=== PATIENT | male | born 1980 ===

== ENCOUNTER 2023-11-02 16:01 | Outpatient (AMB) | payer OTHER, SELFPAY ==
--- NOTE | 2023-11-02 15:59 | MHC.PC.OV ---
Vital Signs 11/02/23 16:03 Weight 201 lb BP 120/74 Blood Pressure Location Rt brachial Position Sitting Pulse 91 Pulse Source Pulse Oximeter Pulse Oximetry (%) 98 Oxygen Delivery Method Room Air Intake Visit Reasons: NPV/ requesting phy Intake Note: Patient here to establish care. Allergies No Known Allergies Allergy (Verified 11/02/23 16:55) Medication List - Last Reconciled 11/02/23 by ALLISON Curry No Known Home Meds Tobacco use date assessed: 11/02/23 Dental Screening Dental Screen Date: 11/02/23 Did you have a dental visit in the last 12 months?: Yes Did you have a dental problem in the last 6 months where you did not have access to dental care?: No Was dental information given to patient?: Patient has dentist HPI NPV/ requesting phy HPI Details New pt is here for a PE. Will order labs. 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 Due for colon screen, will refer to GI. Pt has a strong family hx of prostate cancer (father+uncle). Will order PSA. Denies dribbling with urination, weak stream, and frequent nocturia. Pt is requesting an A1C due to strong family hx of diabetes. [facility] Surgical History History of ear, nose, and throat (ENT) surgery Social History Housing: House Patient Tobacco Use Status: Never used Tobacco e-Cigarette/Vaping Use: Never Used service: No Current occupational status: employed Current occupation: [employer] Cognitive needs: No Hearing needs: No Vision needs: No Questionnaire PHQ-9 Over the last 2 weeks, how often have you been bothered by any of the following problems? 1. Little interest or pleasure in doing things: not at all 2. Feeling down, depressed, or hopeless: not at all 3. Trouble falling or staying asleep, or sleeping too much: not at all 4. Feeling tired or having little energy: not at all 5. Poor appetite or overeating: not at all 6. Feeling bad about yourself - or that you are a failure or have let yourself or your family down: not at all 7. Trouble concentrating on things, such as reading the newspaper or watching television: not at all 8. Moving or speaking so slowly that other people could have noticed. Or the opposite - being so fidgety or restless that you have been moving around a lot more than usual: not at all 9. Thoughts that you would be better off or of hurting yourself in some way: not at all Total score: 0 Depression Screening Interpretation: Negative Depression Screening Done: Yes 54382 - PHQ-9 Billing: Yes Source: Developed by Drs. Ángel Denise, Tammi Ayala, Santos Mcpherson and colleagues, with an educational tiffany from [employer]. Thrive Questionnaire Date Thrive assessed: 11/02/23 I am a: Patient What is your living situation today?: I have a steady place to live Within the past 12 months, did the food you bought not last and you didn't have the money to get more?: Never true Within the past 12 months, did you worry whether your food would run out before you got money to buy more?: Never true Do you have trouble paying for medicines?: No Do you have trouble getting transportation to medical appointments?: No Do you have trouble paying your heating and electricity bill?: No Do you have trouble taking care of your child, family member or friend?: No Do you have trouble with day-to-day activities such as bathing, preparing meals, shopping, managing finances, etc.?: No Are you currently unemployed and looking for a job?: No Are you interested in more education?: No Please select the resources that you would like help with: None Currently or been in a relationship where the following occur: I choose not to answer this question THRIVE Score: 0 AUDIT C Alcohol Use Questionnaire (AUDIT-C) 1. How often do you have a drink containing alcohol?: Never 3. How often do you have six or more drinks on one occasion?: Never Total Score: 0 Score Reviewed/Action Taken: No SALVADOR-7 AMB Questionnaire SALVADOR-7 Date SALVADOR - 7 assessed: 11/02/23 Feeling nervous, anxious, or on edge: 0 = Not at all Not being able to stop or control worryin = Not at all Worrying too much about different things: 0 = Not at all Trouble relaxin = Not at all Being so restless that it is hard to sit still: 0 = Not at all Becoming easily annoyed or irritable: 0 = Not at all Feeling afraid as if something awful might happen: 0 = Not at all Total SALVADOR-7 score (0-4 normal; 5-9 mild; 10-14 moderate; 15-21 severe): 0 Source: Developed by Drs. Ángel Denise, Tammi Ayala, Santos Mcpherson and colleagues, with an educational tiffany from [employer]. SALVADOR-7 Assessment Billing SALVADOR-7 Assessment Tool: SALVADOR-7 Assessment 33479 Review of Systems Const Denies chills and Denies fever(s) Eyes Denies blurry vision ENT Denies vertigo, Denies dizziness and Denies sore throat Card Denies chest pain at rest, Denies chest pain with activity, Denies diaphoresis, Denies dyspnea and Denies dyspnea on exertion Resp Denies cough, Denies dyspnea, Denies dyspnea on exertion and Denies wheezing GI Denies abdominal pain, Denies melena, Denies hematochezia, Denies constipation, Denies diarrhea and Denies loose stools Denies hematuria Musc Denies numbness and Denies tingling Skin/Breast Denies lesions Neuro Denies vertigo, Denies dizziness, Denies numbness and Denies tingling Psych Denies anxiety, Denies depression, Denies homicidal ideation, Denies suicidal ideation and Denies other (substance abuse) Aller/Immun Denies wheezing Physical exam (Primary Care) Vital Signs: Last Vital Signs Pulse 91 11/02/23 16:03 BP 120/74 11/02/23 16:03 Pulse Ox 98 11/02/23 16:03 Oxygen Delivery Method Room Air 11/02/23 16:03 Tobacco/Smoking Status: Tobacco use Status Tobacco use date assessed 11/02/23 11/02/23 16:08 Patient Tobacco Use Status Never used Tobacco 11/02/23 16:08 e-Cigarette/Vaping Use Never Used 11/02/23 16:08 Depression Screening Interpretation: Negative Currently or been in a relationship where the following occur: I choose not to answer this question Const General: cooperative Nutritional Appearance: well nourished Orientation/consciousness: patient oriented x3 HENMT Head: Yes normal to inspection, Yes normocephalic and Yes atraumatic Ears: TM's normal bilaterally Eyes General: appearance normal, both eyes and all related structures Alignment and Position: alignment normal and position normal Neck Neck: Yes normal visual inspection and Yes no lymphadenopathy Thyroid: Thyroid normal Resp Effort & Inspection: normal respiratory effort Auscultation: clear to auscultation bilaterally Cardio Rate: regular rate Rhythm: regular rhythm Heart sounds: S1 normal heart sound present, S2 normal heart sound present and no murmurs GI Palpation (GI): Soft to palpation and nontender Auscultation: normal bowel sounds Male General Exam: Yes normal external exam Penis: normal penis Scrotum: scrotum normal, testes descended bilaterally and no inguinal hernias Testes: no testicular mass Skin Rashes: no rashes Neuro General: patient oriented x3, moves all extremities, no focal motor deficits and deep tendon reflexes 2+ bilaterally Romberg Test: Negative Extrem Right lower extremity: no edema Left lower extremity: no edema Psych Appearance: grossly normal Mental Status: mental status grossly normal Speech and movement: Normal speech and movement present Affect: normal affect Attitude: cooperative Thought process: Normal thought process present Thought content: Normal thought content present Insight: Good insight present (Psych) Judgement: Good judgement present (Psych) Assessment and Plan Assessment & Plan (1) Physical exam: Code(s): Z00.00 - Encounter for general adult medical examination without abnormal findings Plan: Labs ordered (2) Family hx of prostate cancer: Code(s): Z80.42 - Family history of malignant neoplasm of prostate Plan: PSA ordered (3) Screening for prostate cancer: Code(s): Z12.5 - Encounter for screening for malignant neoplasm of prostate Plan: PSA ordered (4) Screening for colon cancer: Code(s): Z12.11 - Encounter for screening for malignant neoplasm of colon Plan: Referred to GI Plan The patient agreed to the use of a health care / medical job titles for this encounter. Scribed for ALLISON Toro by Precious Helm health care / medical job titles, on 11/02/2023 at 16:10 EST. Orders: Orders Complete Blood Count Auto Diff Today Z00.00 - Encounter for general adult medical examination without abnormal findings TSH reflex Free T4 Today Z00.00 - Encounter for general adult medical examination without abnormal findings Hemoglobin A1c Today Z00.00 - Encounter for general adult medical examination without abnormal findings Comprehensive [place]rie. Panel Fast Today Z00.00 - Encounter for general adult medical examination without abnormal findings UA CC w/rflx Micro + Cult Today Z00.00 - Encounter for general adult medical examination without abnormal findings Lipid Panel Today Z00.00 - Encounter for general adult medical examination without abnormal findings Prostate Specific Antigen Scr Today Z12.5 - Encounter for screening for malignant neoplasm of prostate, Z80.42 - Family history of malignant neoplasm of prostate Referrals Gastroenterology Referral Z12.11 - Encounter for screening for malignant neoplasm of colon Coding Level of Care Code New Pt Prev Care 40-64y(53425) Diagnoses Physical exam Z00.00 Family hx of prostate cancer Z80.42 Screening for prostate cancer Z12.5 Screening for colon cancer Z12.11 Additional Codes SALVADOR-7 Assessment Billing - SALVADOR-7 Assessment Tool: SALVADOR-7 Assessment 37823 ([id number])
[2023-11-02 16:03] VITALS: BP 120/74; PULSE 91; O2SAT 98
== END 2023-11-02 16:53 | disposition home or self-care (01) ==
PROVIDERS: Visit Provider Nurse Practitioner Family
DX: Z00.00 Encounter for general adult medical examination without abnormal findings (principal); Z80.42 Family history of malignant neoplasm of prostate; Z12.5 Encounter for screening for malignant neoplasm of prostate; Z12.11 Encounter for screening for malignant neoplasm of colon
CPT/HCPCS: 99386

== ENCOUNTER 2023-12-15 08:50 | Outpatient (REF) | payer OTHER, SELFPAY ==
[2023-12-15 09:51] LABS: MANUAL DIFF FLAG NO
[2023-12-15 10:46] LABS: Basophils Absolute Auto 0.1 X10*3/uL (0.0-0.2); Basophils Percent Auto 0.4 % (0-2); Eosinophils Absolute Auto 0.2 X10*3/uL (0.0-0.4); Eosinophils Percent Auto 1.2 % (0-4); Hematocrit 41.5 % (42.0-52.0); Imm Gran Abs Auto 0.05 X10*3/uL (0.00-0.03); Imm Gran Pct Auto 0.4 % (0.0-0.4); Lymphocytes Absolute Auto 1.4 X10*3/uL (1.2-4.9); Lymphocytes Percent Auto 11.7 % (20-40); Mean Corpuscular HGB Conc 33.7 g/dl (31.0-36.0); Mean Corpuscular Hemoglobin 30.4 pg (27.0-33.0); Mean Corpuscular Volume 90.2 fL (80.0-98.0); Mean Platelet Volume 10.7 fL (9.4-12.4); Monocytes Percent Auto 8.2 % (2-11); Neutrophils Absolute Auto 9.4 x10*3/uL (2.0-8.3); Neutrophils Percent Auto 78.1 % (45-73); Platelet Count 259 X10*3/uL (160-400); Red Cell Distribution Width 13.2 % (11.0-16.0)
[2023-12-15 10:59] LABS: Estimated Average Glucose 117 mg/dL; Hemoglobin A1c % 5.7 % (<6.0)
[2023-12-15 11:24] LABS: Alanine Aminotransferase 21 U/L (0-40); Albumin Level 4.3 g/dL (3.5-5.0); Alkaline Phosphatase 82 U/L (39-117); Anion Gap 13 (12-20); Aspartate Amino Transferase 21 U/L (5-37); Bilirubin Total 0.8 mg/dL (0.0-1.0); Blood Urea Nitrogen 13 mg/dL (9-16); Calcium 9.4 mg/dL (8.4-10.2); Carbon Dioxide 23 mmol/L (22-29); Chloride 106 mmol/L (96-108); Cholesterol 165 mg/dL (<200); Estimated Glomerular Filt Rate > 60; Glucose Fasting 99 mg/dL (60-99); HDL Cholesterol 36 mg/dL (>40); LDL Cholesterol Calculated 115 mg/dL (<100); Potassium 4.1 mmol/L (3.3-5.1); Sodium 138 mmol/L (135-145); Total Protein 7.5 g/dL (6.5-8.0); Triglycerides 70 mg/dL (<150)
[2023-12-15 12:49] LABS: Appearance Urine Clear; Color Urine Yellow; Glucose Urine UA Negative (Negative); Leukocyte Esterase Urine Negative (Negative); Nitrite Urine Negative (Negative); Specific Gravity - Urine <= 1.005 (1.005-1.025); Urine Blood Negative (Negative); Urine Ketones Negative (Negative); Urine Protein Negative (Neg-Trace)
== END 2023-12-15 08:51 | disposition home or self-care (01) ==
LOC: HO.LAB 08:50
PROVIDERS: PCP Nurse Practitioner Family; Visit Provider Nurse Practitioner Family
DX: Z00.00 Encounter for general adult medical examination without abnormal findings (principal); Z80.42 Family history of malignant neoplasm of prostate; Z12.5 Encounter for screening for malignant neoplasm of prostate; Z13.1 Encounter for screening for diabetes mellitus
CPT/HCPCS: 36415; 80053; 80061; 81003; 83036; 84153; 84443; 85025

== ENCOUNTER 2024-02-16 08:27 | Outpatient (AMB) | payer OTHER, SELFPAY ==
[2024-02-16 08:37] VITALS: BMI 24.0
--- NOTE | 2024-02-16 08:37 | A.OFFVIS_ITS ---
VS Expanded 02/16/24 08:37 02/16/24 08:42 Height 6 ft 5 in 6 ft 5 in Weight 202 lb 9.677 oz 202 lb BMI 24.0 24.0 Intake Visit Reasons: Other specified personal risk factors/LVM Allergies No Known Allergies Allergy (Verified 11/02/23 16:55) Nutrition Presentation Details: Pt presents for MNT for poor diet. Pt was referred by PCP Pt has questions regarding nutrition for CVD prevention. food frequency fish: 0-1/mo fruits: 1-4/wk dairy: 3-4 /d ve-4 x/wk starches> 30 serving/d water: 34-60 oz/d pastries and similar :daily beverages: water/milk/juice physical activity: daily life etoh/cig---- BS Monitoring Most Recent Diabetes Results: Cholesterol 165 mg/dL (<200) 12/15/23 HDL Cholesterol 36 mg/dL (>40) L 12/15/23 Triglycerides 70 mg/dL (<150) 12/15/23 Creatinine 0.84 mg/dL (0.5-1.4) 12/15/23 Blood Urea Nitrogen 13 mg/dL (9-16) 12/15/23 Sodium 138 mmol/L (135-145) 12/15/23 Potassium 4.1 mmol/L (3.3-5.1) 12/15/23 Chloride 106 mmol/L (96-108) 12/15/23 Carbon Dioxide 23 mmol/L (22-29) 12/15/23 Calcium 9.4 mg/dL (8.4-10.2) 12/15/23 AST 21 U/L (5-37) 12/15/23 ALT 21 U/L (0-40) 12/15/23 Total Protein 7.5 g/dL (6.5-8.0) 12/15/23 Albumin 4.3 g/dL (3.5-5.0) 12/15/23 VUK-Qibvhka-Qn.Jeor Equation Height: 6 ft 5 in Weight: 202 lb Resting Metabolic Rate: 1921.32 Calculated Activity Level: Moderate Activity Calories Needed to Maintain Weight: 2978.05 Diagnosis Nutrition problem #1: food nutri know defi As related to (etiology) #1: diagnosis As evidenced by (sign/symptom) #1: knowledge deficit of diet [facility] Surgical History History of ear, nose, and throat (ENT) surgery Social History Housing: House Patient Tobacco Use Status: Never used Tobacco e-Cigarette/Vaping Use: Never Used service: No Current occupational status: employed Current occupation: [employer] Cognitive needs: No Hearing needs: No Vision needs: No Assessment & Plan Assessment & Plan (1) Has poorly balanced diet: Code(s): Z91.89 - Other specified personal risk factors, not elsewhere classified Category: Social Hx Plan: Wt: 91 Kg ( 03/10 ) Est kcal needs as per MSJ: 3000 (40% carb (300 g carb/day), 30% protein (225 g prot/d) /fat (100 g fat/day)) Est fluid needs as per 30 ml/d: 2700 Est prot as per 1 g/kg bw: 91 Recommend fiber intake : 8-10 g per day and gradually increase to 25-28 g per day for women and 35-38 g for men or as tolerated Recommend sodium intake per day : less than 2300 mg Educated patient on: ( R = reviewed V = verbalizes understanding N/R = needs review N/A = not applicable * Food sources of carbohydrate, adequate serving sizes and its role in various health conditions: R * Differences between complex carbohydrates a simple carbohydrates, role of fiber in diet: R V N/R * Lean protein sources of foods: R * Differences between types of fats and role in diet (mono on saturated fat fatty acids, saturated fatty acids, trans fats): R basic * Food sources of sodium in salt and healthy modifications for heart health in kidney health: R V R/V * Vitamins and minerals: R V N/R * Healthy plate method concept: R V N/R * Physical activity: Benefits a precaution: R V N/R Patient Instructions: Work on following healthy plate method Choose snacks with a protein/carb balance Coding Level of Care Code Nutr Indiv Intake (97125) Diagnoses Has poorly balanced diet Z91.89 Time Spent (min) 30
[2024-02-16 08:42] VITALS: BMI 24.0
== END 2024-02-16 09:14 | disposition home or self-care (01) ==
PROVIDERS: PCP Nurse Practitioner Family; Visit Provider Dietitian, Registered
DX: Z91.89 Other specified personal risk factors, not elsewhere classified (principal)

== ENCOUNTER → 2024-02-16 08:27 | Outpatient (BNVA) | payer OTHER, SELFPAY | PROVIDERS: PCP Nurse Practitioner Family; Visit Provider Dietitian, Registered | DX: Z91.89 Other specified personal risk factors, not elsewhere classified (principal); Z71.3 Dietary counseling and surveillance | CPT/HCPCS: 97802 ==

== ENCOUNTER 2024-09-26 08:57 | Outpatient (AMB) | payer OTHER, SELFPAY ==
--- NOTE | 2024-09-26 08:57 | AM.OFFWIN_ITS ---
Intake Vital Signs 09/26/24 08:58 Weight 193 lb 8 oz BP 122/80 Blood Pressure Location Lt brachial Position Sitting Pulse 92 Pulse Source Pulse Oximeter Temp 98.7 F Temp Source Oral Pulse Oximetry (%) 97 Oxygen Delivery Method Room Air Intake Visit Reasons: EP-upper respiratory symptoms Intake Note: Patient here for chest congestion, cough and GI issues that has been present for about 5 days. Patient Tobacco Use Status: Never used Tobacco Allergies No Known Allergies Allergy (Verified 09/26/24 08:59) Do you need a note to return to daycare/school/sports/work: Yes HPI HPI Comments History of Present Illness Details 44 y/o Male patient who presents to the walk in clinic with c/o URI symptoms. Pt c/o Cough, chest congestion and GI symptoms for 5 days now. [facility] Medical History (Updated 09/26/24 @ 09:44 by Dede Rojas NP) Acute respiratory disease Surgical History History of ear, nose, and throat (ENT) surgery Social History Housing: House Patient Tobacco Use Status: Never used Tobacco e-Cigarette/Vaping Use: Never Used service: No Current occupational status: employed Current occupation: [employer] Cognitive needs: No Hearing needs: No Vision needs: No Review of Systems Const All systems reviewed & are unremarkable except as noted in HPI and below Physical Exam Vital Signs: Last Vital Signs Temp 98.7 F 09/26/24 08:58 Pulse 92 09/26/24 08:58 BP 122/80 09/26/24 08:58 Pulse Ox 97 09/26/24 08:58 Oxygen Delivery Method Room Air 09/26/24 08:58 Const General: comfortable and no acute distress Nutritional Appearance: well nourished Orientation/consciousness: patient oriented x3 HEENT Head: Yes normocephalic Ears: external ears normal and TM abnormal bulging bilateral and with fluid behind the TM bilateral General nose exam: Nasal discharge present Face and sinus: Yes sinuses nontender Mouth: moist mucous membranes Throat: Yes uvula midline Resp Effort & Inspection: normal respiratory effort and able to speak in complete sentences Auscultation: clear to auscultation bilaterally, no crackles, no rales, no rhonchi and no wheezes Cardio Heart sounds: S1 normal heart sound present and S2 normal heart sound present Neuro General: patient oriented x3 Assessment & Plan Assessment & Plan (1) Acute respiratory disease: Code(s): J06.9 - Acute upper respiratory infection, unspecified Plan: OTC cough remedies. Rest and hydrate well with warm fluids. Acetaminophen for pain relief. Zyrtec BID for 1 week. Medications: New benzonatate 200 mg (2 x 100 mg) PO BID 60 caps 0RF cough J06.9 - Acute upper respiratory infection, unspecified Coding Level of Care Code Est Pt Level 4 (54739) Diagnoses Acute respiratory disease J06.9 Time Spent (min) 20
[2024-09-26 08:58] VITALS: BP 122/80; PULSE 92; TEMP 37.1; O2SAT 97
--- OUTSIDE RECORDS SUMMARY | 2024-09-26 09:02 | XMS_ITS | Encounter Summary ---
Author Organization [facility] Address [address] [place] [id number] Care Team Providers Care Daycare Provider Name Role Phone Jw Momin MD Primary Care Provider [phone] Encounter Details Date Type Department Care Team (Late st Contact Info) Description 02/11/2022 Scanned Document [facility] Primary Care [address] [phone] Jw Momin MD [address] [place] [address] DX not payable Social History Tobacco Use Types Packs/Day Years Used Date Smoking Tobacco: Never Smokeless Tobacco: Never Alcohol Use Standard Drinks/Week Comments Never 0 (1 standard drink = 0.6 oz pur e alcohol) Sex and Gender Information Value Date Recorded Sex Assigned at Not on file Legal Sex Male 1:47 PM EST Gender Identity Not on file Sexual Orientation Not on file COVID-19 Exposure Response Date Recorded In the last 10 days, have yo u been in contact with someone who was confirmed or suspected to have Coronavirus/COVID-19? No / Unsure 02/04/2022 1:51 PM EDT documented as of this encounter Plan of Treatment Not on file documented as of this encounter Visit Diagnoses Not on filedocumented in this encounter Care Teams Daycare Provider Relationship Specialty Start Date End Date Jw Momin MD [address] [place], [place] [phone] PCP - General Family Medicine 02/04/22 documented as of this encounter
--- OUTSIDE RECORDS SUMMARY | 2024-09-26 09:02 | XMS_ITS | Encounter Summary ---
Author Organization [facility] Address [address] [place] [id number] Care Team Providers Care Electrolysist Name Role Phone Jw Momin MD Primary Care Provider [phone] Encounter Details Date Type Department Care Team (Late st Contact Info) Description 07/04/2022 Scanned Document [facility] Primary Care [address] [id number] Jw Momin MD [address] [place] [address] [facility] Surgical History and Physical - 12/06/2013 Social History Tobacco Use Types Packs/Day Years Used Date Smoking Tobacco: Never Smokeless Tobacco: Never Alcohol Use Standard Drinks/Week Comments Never 0 (1 standard drink = 0.6 oz pur e alcohol) Sex and Gender Information Value Date Recorded Sex Assigned at Not on file Legal Sex Male 1:47 PM EST Gender Identity Not on file Sexual Orientation Not on file documented as of this encounter Plan of Treatment Not on file documented as of this encounter Visit Diagnoses Not on filedocumented in this encounter Care Teams Electrolysist Relationship Specialty Start Date End Date Jw Momin MD [address] [place] [id number] PCP - General Family Medicine 02/04/22 documented as of this encounter
--- OUTSIDE RECORDS SUMMARY | 2024-09-26 09:02 | XMS_ITS | Clinical Summary ---
Author Organization [employer] [facility] Address [address] [place] [address] Care Team Providers Care Park Maintenance Technician Name Role Phone Jw Momin MD Primary Care Provider [phone] Allergies No known active allergies Medications No known medications Active Problems No known active problems Family History Medical History Relation Name Comments Cancer Father Kunal Cote(prostate w ith prostatectomy) Relation Name Status Comments Father Kunal Cote(prostate with prostatec tyler) Social History Tobacco Use Types Packs/Day Years Used Date Smoking Tobacco: Never Smokeless Tobacco: Never Tobacco Cessation:Counseling Given: Not Answered Alcohol Use Standard Drinks/Week Comments Never 0 (1 standard drink = 0.6 oz pur e alcohol) Sex and Gender Information Value Date Recorded Sex Assigned at Not on file Legal Sex Male 1:47 PM EST Gender Identity Not on file Sexual Orientation Not on file Last Filed Vital Signs Vital Sign Reading Time Taken Comments Blood Pressure 126/72 03/04/2022 10:01 AM EDT Pulse 70 03/04/2022 10:01 AM EDT Temperature 35.9 ??C (96.7 ??F) 03/04/2022 10:01 AM E DT Respiratory Rate 16 03/04/2022 10:01 AM EDT Oxygen Saturation 98% 03/04/2022 10:01 AM EDT Inhaled Oxygen Concentration - - Weight 92.5 kg (204 lb) 03/04/2022 10:01 AM EDT Height 195.6 cm (6' 5 ) 03/04/2022 10:01 AM EDT Body Mass Index 24.19 03/04/2022 10:01 AM EDT Plan of Treatment Scheduled Orders Name Type Priority Associated Diagnoses Orde r Schedule Cologuard?? colon cancer screening Lab Routine Screen for colon cancer Ordered: 05/09/2024 Health Maintenance Due Date Last Done Comments CT Colonography 1978 FIT-DNA 1978 FIT 1978 FOBT 1978 Sigmoidoscopy 1978 Tdap and Td Vaccines Adult 1997 Annual Physical Exam 02/04/2023 02/04/2022 Colonoscopy 12/07/2023 12/06/2013 Colorectal Cancer Screening 12/07/2023 Lipid Panel 02/04/2027 02/04/2022 Hepatitis C Screening Completed 02/04/2022 COVID-19 Vaccine Discontinued HIB Vaccines Aged Out No longer eligi ble based on patient's age to complete this topic HPV Vaccines Aged Out No longer eligi ble based on patient's age to complete this topic Hepatitis A Vaccines Aged Out No long er eligible based on patient's age to complete this topic IPV Vaccines Aged Out No longer eligi ble based on patient's age to complete this topic Influenza Vaccine Discontinued Meningococcal Vaccine Aged Out No adebayo dianna eligible based on patient's age to complete this topic Pneumococcal Vaccine: Peds ( 0 to 5 Yrs) and At-Risk Pts (6 to 49 Yrs) Aged Out No longer eligible b ased on patient's age to complete this topic RSV <20 Months Aged Out No longer ronny gible based on patient's age to complete this topic Procedures Procedure Name Priority Date/Time Associated Diagnosis Comments HEPATITIS C ANTIBODY, DIAGNOSTIC W/ RFX TO HCV RNA Routine 02/04/2022 4:13 PM EDT Need for hepatitis C screening test LIPID PANEL WITH RATIOS Routine 02/04/2022 4:13 PM EDT Routine medical exam COLONOSCOPY Routine 12/06/2013 from Last 3 Months or Most Recently Relevant to Health Maintenance Results * Hepatitis C antibody (02/04/2022 4:13 PM EDT) Hep C Antibody, IgG Non-React dana Non-React dana 02/04/2022 8:16 PM EDT LAB[facility]ORY [facility] Comment: Performed on [employer] Not infected with HCV, unless recent infection is suspected or other evidence exists to indicate HCV infection. This assay can be affected by patients taking high dose biotin supplements (>5mg/day). An eight hour wait time or washout period is necessary for accurate test results following high doses of biotin Blood Venous blood / Unknown Venipuncture / Unknown 02/04/2022 4:13 PM EDT 02/04/2022 4:14 PM EDT Jw Momin MD LAB BLOOD ORDERABLES Final Result Performing Organization Address City/[facility]/ZIP Co de Phone Number LABORATORY SERVICES [id number] [place] [phone], * (ABNORMAL) Lipid panel (02/04/2022 4:13 PM EDT) Cholesterol 188 <=200 mg/dL 02/04/2022 7:31 PM EDT LAB[facility] Triglycerides 66 <150 mg/dL 02/04/2022 7:31 PM EDT LAB[facility]ORY [facility] HDL 37(L) >40 mg/dL 02/04/2022 7:31 PM EDT LAB[facility]ORY [facility] % Total 20 02/04/2022 7:31 PM EDT LAB[facility] LDL Calculated 138(H) <100 mg/dL 02/04/2022 7:31 PM EDT LAB[facility] Cholesterol HDL Ratio 5.1 02/04/2022 7:31 PM EDT LAB[facility] LDL/HDL Ratio 3.7 02/04/2022 7:31 PM EDT LAB[facility]ORY [facility] NON HDL CHOLESTEROL 151(H) <130 02/04/2022 7:31 PM EDT LAB[facility]ORY [facility] Blood Venous blood / Unknown Venipuncture / Unknown 02/04/2022 4:13 PM EDT 02/04/2022 4:14 PM EDT Jw Momin MD LAB BLOOD ORDERABLES Final Result Performing Organization Address City/[facility]/ZIP Co de Phone Number LABORATORY SERVICES [id number] [place] [phone], * Colonoscopy (12/06/2013) Anatomical Region Laterality Modality Endoscopy External Ordering Provider Transcribe GI PROCEDU RE ORDERABLES Final Result from Last 3 Months or Most Recently Relevant to Health Maintenance Insurance [employer] Care Teams Park Maintenance Technician Relationship Specialty Start Date End Date Jw Momin MD [address] [place] [phone] PCP - General Family Medicine 02/04/22
--- OUTSIDE RECORDS SUMMARY | 2024-09-26 09:02 | XMS_ITS | Clinical Summary ---
Author Organization [facility] Address [address] [place] [address] Care Team Providers Care Conservation Agent Name Role Phone Jw Momin MD Primary Care Provider [phone] Allergies No known active allergies Medications No known medications Active Problems Problem Noted Date Diagnosed Date Family history of thoracic aortic aneurysm 04/30 Family History Medical History Relation Name Comments Coronary artery disease Paternal Grandfather Aneurysm Paternal Grandmother Relation Name Status Comments Paternal Grandfather Paternal Grandmother Social History Tobacco Use Types Packs/Day Years Used Date Smoking Tobacco: Never Tobacco Cessation:Counseling Given: Not Answered Alcohol Use Standard Drinks/Week Comments Not Currently 0 (1 standard drink = 0.6 oz pur e alcohol) Sex and Gender Information Value Date Recorded Sex Assigned at Not on file Legal Sex Male 2:19 PM EDT Gender Identity Not on file Sexual Orientation Not on file Last Filed Vital Signs Vital Sign Reading Time Taken Comments Blood Pressure 122/72 04/30/2022 9:03 AM EST Pulse 78 04/30/2022 9:03 AM EST Temperature - - Respiratory Rate - - Oxygen Saturation - - Inhaled Oxygen Concentration - - Weight 93.4 kg (206 lb) 04/30/2022 9:03 AM EST Height 195.6 cm (6' 5 ) 04/30/2022 9:03 AM EST Body Mass Index 24.43 04/30/2022 9:03 AM EST Plan of Treatment Health Maintenance Due Date Last Done Comments Hepatitis C Virus Screening 1978 HIV Screening 1991 DTaP/Tdap/Td Vaccines (1 - Tdap) 1997 Hepatitis B Vaccines (1 of 3 - 19+ 3-dose series) 1997 Colonoscopy 2023 COVID-19 Vaccine (1 - 2024-2 5 season) 2024 Influenza Vaccine 12/16/2024 Pneumococcal Vaccine: Pediat tico (0-5 Years) and At-Risk Patients (6 to 49 Years) Aged Out No longer eligible b ased on patient's age to complete this topic Insurance [employer] HMO/POS Care Teams Conservation Agent Relationship Specialty Start Date End Date Jw Momin MD [address] [place] [phone] PCP - General Family Medicine 02/05/22
--- OUTSIDE RECORDS SUMMARY | 2024-09-26 09:02 | XMS_ITS | Encounter Summary ---
Author Organization [facility] Address [address] [place] [address] Care Team Providers Care Pharmacy District Manager Name Role Phone Jw Momin MD Primary Care Provider [phone] Encounter Details Date Type Department Care Team (Late st Contact Info) Description 05/02/2022 Scanned Document [facility] Primary Care [address] [address] Jw Momin MD [address] [place] [address] Cardiology 04/30/22 Social History Tobacco Use Types Packs/Day Years [...] on filedocumented in this encounter Care Teams Pharmacy District Manager Relationship Specialty Start Date End Date Jw Momin MD [address] [place] [phone] PCP - General Family Medicine 02/04/22 documented as of this encounter
--- OUTSIDE RECORDS SUMMARY | 2024-09-26 09:02 | XMS_ITS | Encounter Summary ---
Author Organization [facility] Address [address] [place] [address] Care Team Providers Care Juke Box Mechanic Name Role Phone Jw Momin MD Primary Care Provider [phone] Encounter Details Date Type Department Care Team (Late st Contact Info) Description 10/31/2022 Scanned Document [facility] Primary Care [address] [address] Jw Momin MD [address] [place] [address] Dermatology 10/31/22 Social History Tobacco Use Types Packs/Day Years [...] on filedocumented in this encounter Care Teams Juke Box Mechanic Relationship Specialty Start Date End Date Jw Momin MD [address] [place] [phone] PCP - General Family Medicine 02/04/22 documented as of this encounter
--- OUTSIDE RECORDS SUMMARY | 2024-09-26 09:02 | XMS_ITS | Encounter Summary ---
Author Organization [facility] Address [address] [place] [address] Care Team Providers Care Inspector Balance Wheel Motion Name Role Phone Jw Momin MD Primary Care Provider [phone] Encounter Details Date Type Department Care Team (Late st Contact Info) Description 02/10/2022 Procedure Pass [facility] Radiology, Outpatient Center (Ultrasound) [address] [facility], [address] [place], [place] [address] Social History Tobacco Use Types Packs/Day Years [...] on filedocumented in this encounter Care Teams Inspector Balance Wheel Motion Relationship Specialty Start Date End Date Jw Momin MD [address] [place] [address] PCP - General Family Medicine 02/04/22 documented as of this encounter
--- OUTSIDE RECORDS SUMMARY | 2024-09-26 09:02 | XMS_ITS ---
Author Name [facility] Organization Unknown Problems Problem Status Onset Date Problem Type Date of Resoluti on Source Shortness of breath active [facility] Family history of thoracic aortic aneurysm active 2022-04-30 ProblemAct [facility] Encounters Encounter Type Encounter Reason Primary Diagnosis Location Date Ambulatory Shortness of breath [facility] 05/29/2022 Ambulatory Shortness of breath [facility] 04/30/2022 Ambulatory Sacrococcygeal disorders, not elsewhere classified [facility] 03/04/2022 Ambulatory Sacrococcygeal disorders, not elsewhere classified [facility] 03/04/2022 Ambulatory Other specified abnormal findings of blood chemistry [facility] 03/04/2022 Ambulatory Unspecified jaundice [facility] 03/04/2022 Ambulatory Encounter for ge neral adult medical examination without abnormal findings [facility] 02/04/2022 Ambulatory Disorder of the skin and subcutaneous tissue, unspecified [facility] 02/04/2022 Care Team Organization Name Specialty Phone Email Start Date End Da te [facility] 04/30/20222022 [facility] 04/30/2022 [facility] 03/08/2022 [facility] 02/04/202202/15
== END 2024-09-26 10:23 | disposition home or self-care (01) ==
PROVIDERS: PCP Nurse Practitioner Family; Visit Provider Nurse Practitioner Family
DX: J06.9 Acute upper respiratory infection, unspecified (principal)

== ENCOUNTER → 2024-09-26 08:57 | Outpatient (BNVA) | payer OTHER, SELFPAY | PROVIDERS: PCP Nurse Practitioner Family; Visit Provider Nurse Practitioner Family | DX: Z13.89 Encounter for screening for other disorder (principal) ==

== ENCOUNTER 2024-10-20 11:59 | Outpatient (AMB) | payer OTHER, SELFPAY ==
[2024-10-20 12:07] VITALS: BP 118/62; PULSE 79; TEMP 36.7; O2SAT 98; BMI 22.4
--- NOTE | 2024-10-20 12:07 | MHC.OFFWIV ---
Intake Vital Signs 10/20/24 12:07 Height 6 ft 5 in Weight 188 lb 8 oz BMI 22.4 BP 118/62 Blood Pressure Location Lt brachial Pulse 79 Pulse Source Pulse Oximeter Temp 98.1 F Temp Source Oral Pulse Oximetry (%) 98 Oxygen Delivery Method Room Air Intake Visit Reasons: EP sick visit ([place]) Intake Note: Pt presents to the office today for c/o red blotches on both ankles. Pt states his fingers are very tight. Patient Tobacco Use Status: Never used Tobacco Allergies No Known Allergies Allergy (Verified 10/20/24 12:09) HPI HPI Comments History of Present Illness Details History of Present Illness - The patient is a 44-year-old male presenting with acute bilateral knee pain with associated bilateral hand swelling and feeling fatigued. - The patient reports onset of bilateral ankle redness and pain on a Thursday night, suspicion of chemical exposure linked to dalia work was mentioned. - By the following Thursday morning, he reports pressure-like tightness in his knees along with swelling in both hands, limiting his ability to take off his ring. - There is an ongoing pattern of significant fatigue and exercise intolerance, temporarily connected to a recent respiratory infection three weeks earlier. - The diet consists of high protein, low fat resulting in notable weight loss and constipation over the past six months. - He has no personal history or family history of autoimmune disease or confirmed Lyme disease. - The patient denies any recent personal exposure to ticks but removed a tick from his son about two weeks prior. - Social habits include abstention from medications, alcohol, tobacco, and drug use. - He has no family history of any autoimmune diseases. - He denies unintentional wt loss, fever, chills, CP, SOB, dizziness, cough, sore throat, ear pain, n/v/d, dark urine, hematuria, blood in the stools. He denies recent travel. 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 Physical Exam General: Cooperative, healthy appearing, comfortable, no acute distress and well developed Orientation: Patient oriented x3 Limitations: No limitations Head: Normal to inspection Ears: Hearing grossly normal bilaterally Nose: Normal external nose present Face and sinus: Normal facial exam Eyes: Appearance normal, both eyes and all related structures Neck: Normal visual inspection and Yes full ROM Respiratory: Normal respiratory effort and able to speak in complete sentences. Clear to auscultation bilaterally Cardiovascular: Regular rate and rhythm. Normal S1 and S2 GI: Normal to inspection. Soft to palpation and nontender Skin: No rashes or lesions noted Neuro: Patient oriented x3 Extremities: Redness noted on both ankles, knees tight with pressure, hands swollen, unable to close hands fully. Musculoskeletal: FROM of the knees bilaterally. No click noted. No swelling noted. No erythema noted. No calf tenderness noted. Negative Christina's noted. Ambulates with steady gait. Strength is 5/5 on the LE bilaterally. FROM of the digits on the hands bilaterally. No nodules noted. FROM when making a fist and hand strength is 5/5. Patient was informed and verbally consented to the use of an ambient scribe for clinic note documentation during this visit. [facility] Medical History Acute respiratory disease Surgical History History of ear, nose, and throat (ENT) surgery Social History Housing: House Patient Tobacco Use Status: Never used Tobacco e-Cigarette/Vaping Use: Never Used service: No Current occupational status: employed Current occupation: [employer] Cognitive needs: No Hearing needs: No Vision needs: No Review of Systems Const All systems reviewed & are unremarkable except as noted in HPI and below Physical Exam Vital Signs: Last Vital Signs Temp 98.1 F 10/20/24 12:07 Pulse 79 10/20/24 12:07 BP 118/62 10/20/24 12:07 Pulse Ox 98 10/20/24 12:07 Oxygen Delivery Method Room Air 10/20/24 12:07 BMI result Body Mass Index 22.4 Assessment & Plan Assessment & Plan (1) Joint pain: Code(s): M25.50 - Pain in unspecified joint Qualifiers: Joint pain location: knee Laterality: bilateral Qualified Code(s): M25.561 - Pain in right knee; M25.562 - Pain in left knee Plan Most likely arthritis vs RA vs electrolyte abnormality vs wt loss vs overuse due to exercise Plan - Perform comprehensive laboratory work including CMP, thyroid function tests, NEIDA, and Rheumatoid Factor. - Test for possible Lyme disease exposure despite no personal contact with ticks but acknowledging recent family exposure. - Evaluate impact of diet through a comprehensive fat profile analysis. - Confirm clear urine observation does not warrant further immediate urinalysis. - Plan for further follow-up with patient's primary care provider for review of laboratory results and continued management. - Provided general reassurance about constipation issue linked to current dietary practices and absence of concerning kidney or other systemic symptoms. Orders: Orders Complete Blood Count Auto Diff Today M25.50 - Pain in unspecified joint Erythrocyte Sedimentation Rate Today M25.50 - Pain in unspecified joint PSA,Total (Free>4and<10) Today M25.50 - Pain in unspecified joint Tick-borne Disease Molecular Today S30.860A - Insect bite (nonvenomous) of lower back and pelvis, initial encounter, W57.XXXA - Bitten or stung by nonvenomous insect and other nonvenomous arthropods, initial encounter TSH reflex Free T4 Today M25.50 - Pain in unspecified joint Comprehensive Met. Panel Today M25.50 - Pain in unspecified joint GI Panel Today M25.50 - Pain in unspecified joint CRP High Sensitivity Today M25.50 - Pain in unspecified joint AMB Hemoglobin A1c Today Z13.9 - Encounter for screening, unspecified NEIDA Reflex Titer and Pattern Today M25.50 - Pain in unspecified joint Coding Level of Care Code Est Pt Level 4 (05289) Diagnoses Arthralgia of both knees M25.561; M25.562 Joint pain location: knee Laterality: bilateral
--- OUTSIDE RECORDS SUMMARY | 2024-10-20 14:08 | XMS_ITS | Clinical Summary ---
Author Organization [facility] Address [address] [place] [address] Care Team Providers Care Engagement Director Name Role Phone Jw Momin MD Primary Care Provider [phone] Allergies No known active allergies Medications No [...] LABORATORY SERVICES Comment: Performed on Siemens Advia iGoaur Not infected with HCV, unless recent infection [...] PM EDT 02/04/2022 4:14 PM EDT Jw Mmoin MD LAB BLOOD ORDERABLES Final Result Performing Organization Address City/[facility]/ZIP Co de Phone Number LABORATORY SERVICES [id number] [place] [phone], * (ABNORMAL) Lipid panel (02/04/2022 4:13 PM [...] BLOOD ORDERABLES Final Result Performing Organization Address City/[facility]/ZIP Co de Phone Number LABORATORY SERVICES [id number] [place] [address], * Colonoscopy (12/06/2013) Anatomical Region Laterality Modality Endoscopy External Ordering Provider Transcribe GI PROCEDU RE ORDERABLES Final Result from Last 3 Months or Most Recently Relevant to Health Maintenance Insurance [employer] Care Teams Engagement Director Relationship Specialty Start Date End Date Jw Momin MD [address] [place] [phone] PCP - General Family Medicine 02/04/22
== END 2024-10-20 13:44 | disposition home or self-care (01) ==
PROVIDERS: PCP Nurse Practitioner Family; Visit Provider Physician Assistant Medical
DX: M25.561 Pain in right knee (principal); M25.562 Pain in left knee

== ENCOUNTER 2024-10-20 11:59 | Outpatient (REF) | payer OTHER, SELFPAY ==
[2024-10-20 16:13] LABS: MANUAL DIFF FLAG NO
[2024-10-20 16:18] LABS: Basophils Absolute Auto 0.1 X10*3/uL (0.0-0.2); Basophils Percent Auto 1.4 % (0-2); Eosinophils Absolute Auto 0.3 X10*3/uL (0.0-0.4); Eosinophils Percent Auto 3.6 % (0-4); Hematocrit 37.8 % (42.0-52.0); Hemoglobin 12.3 g/dl (14.0-18.0); Imm Gran Abs Auto 0.03 X10*3/uL (0.00-0.03); Imm Gran Pct Auto 0.4 % (0.0-0.4); Lymphocytes Absolute Auto 1.2 X10*3/uL (1.2-4.9); Mean Corpuscular HGB Conc 32.5 g/dl (31.0-36.0); Mean Corpuscular Hemoglobin 29.2 pg (27.0-33.0); Mean Corpuscular Volume 89.8 fL (80.0-98.0); Mean Platelet Volume 10.8 fL (9.4-12.4); Monocytes Absolute Auto 0.8 X10*3/uL (0.1-1.2); Monocytes Percent Auto 10.7 % (2-11); Neutrophils Absolute Auto 4.8 x10*3/uL (2.0-8.3); Neutrophils Percent Auto 66.9 % (45-73); Platelet Count 322 X10*3/uL (160-400); Red Blood Count 4.21 X10*6/uL (4.60-5.80); White Blood Count 7.2 X10*3/uL (4.8-10.8)
[2024-10-20 16:54] LABS: Erythrocyte Sedimentation Rate 13 MM/HR (0-15)
[2024-10-20 16:56] LABS: PSA,Total (Free>4and<10) 0.85 ng/mL (0.00-4.00)
[2024-10-20 18:06] LABS: Alanine Aminotransferase 22 U/L (0-40); Albumin Level 4.3 g/dL (3.5-5.0); Alkaline Phosphatase 76 U/L (39-117); Anion Gap 11 (12-20); Aspartate Amino Transferase 29 U/L (5-37); Bilirubin Total 0.6 mg/dL (0.0-1.0); Blood Urea Nitrogen 15 mg/dL (9-16); Calcium 9.1 mg/dL (8.4-10.2); Carbon Dioxide 25 mmol/L (22-29); Chloride 107 mmol/L (96-108); Estimated Glomerular Filt Rate > 60; Glucose Random 81 mg/dL (60-115); Potassium 4.1 mmol/L (3.3-5.1); Sodium 139 mmol/L (135-145); Total Protein 7.2 g/dL (6.5-8.0)
[2024-10-20 18:23] LABS: TSH reflex Free T4 2.56 uIU/mL (0.32-4.0)
[2024-10-21 06:39] LABS: CRP High Sensitivity 1.4 mg/L
[2024-10-21 14:42] LABS: A. Phagocytphilium DNA,RT-PCR NOT DETECTED (NOT DETECTED); Babesia Microti DNA, RT-PCR NOT DETECTED (NOT DETECTED); Borrelia Miyamotoi,DNA RT-PCR NOT DETECTED (NOT DETECTED); E.Chaffeensis DNA RT-PCR NOT DETECTED (NOT DETECTED); Lyme(Borrelia ssp)DNA RT-PCR NOT DETECTED (NOT DETECTED)
[2024-10-25 15:44] LABS: Anti Nuclear Antibody Pattern Nuclear, Speckled; Anti Nuclear Antibody Screen POSITIVE (NEGATIVE)
== END 2024-10-20 12:00 | disposition home or self-care (01) ==
LOC: HO.HMGCLDS 11:59
PROVIDERS: PCP Nurse Practitioner Family; Visit Provider Physician Assistant Medical
DX: M25.50 Pain in unspecified joint (principal); S30.860A Insect bite (nonvenomous) of lower back and pelvis, initial encounter; Z12.5 Encounter for screening for malignant neoplasm of prostate
CPT/HCPCS: 36415; 80053; 84153; 84443; 85025; 85652; 86038; 86039; 86141; 87468; 87469; 87478; 87484; 87798

== ENCOUNTER 2024-10-26 06:55 | Outpatient (AMB) | payer OTHER, SELFPAY ==
--- OUTSIDE RECORDS SUMMARY | 2024-10-26 06:57 | XMS_ITS | Clinical Summary ---
Author Organization [employer] [facility] Address [address] [place] [address] Care Team Providers Care Learning Strategist Name Role Phone Jw Momin MD Primary Care Provider [phone] Allergies No known active allergies Medications No [...] LABORATORY SERVICES Comment: Performed on Siemens Advia Proteus Digital Healthaur Not infected with HCV, unless recent infection [...] BLOOD ORDERABLES Final Result Performing Organization Address City/[facility]/ZIP Co de Phone Number LABORATORY SERVICES [id number] [place] [address], * (ABNORMAL) Lipid panel (02/04/2022 4:13 PM [...] BLOOD ORDERABLES Final Result Performing Organization Address City/[facility]/ZIP Co de Phone Number LABORATORY SERVICES [id number] [place] [address], * Colonoscopy (12/06/2013) Anatomical Region Laterality Modality Endoscopy External Ordering Provider Transcribe GI PROCEDU RE ORDERABLES Final Result from Last 3 Months or Most Recently Relevant to Health Maintenance Insurance [employer] Care Teams Learning Strategist Relationship Specialty Start Date End Date Jw Momin MD [address] [place] [phone] PCP - General Family Medicine 02/04/22
--- NOTE | 2024-10-26 07:37 | A.OFFPC_ITS ---
Intake Visit Reasons: Discuss test results [phone] Allergies No Known Allergies Allergy (Verified 10/20/24 12:09) Medication List - Last Reconciled 10/26/24 by EVIE Curry No Known Home Meds Tobacco use date assessed: 11/02/23 Dental Screening Dental Screen Date: 11/02/23 HPI Discuss test results [phone] HPI Details History of Present Illness The patient is a 44-year-old male presenting with joint pain as the primary reason for the visit. Symptoms began after a potential fifth disease exposure, with redness and swelling primarily in the ankles, and discomfort in multiple joints including elbows, fingers, feet, and knees. While the joint pain persists, there is slight improvement noted. The patient experiences shortness of breath on exertion. Lab work showed a slightly elevated high-sensitive CRP, positive NEIDA, and mild anemia. The patient denies family cardiac history, smoking, and chest pain but reports ongoing constipation, potentially worsened by a carnivore diet. Review of Systems - Musculoskeletal: Reports joint pain an d swelling in ankles, elbows, fingers, feet, and knees - Respiratory: Reports shortness of wing th; Denies chest pain - Gastrointestinal: Reports constipation - Constitutional: Denies fever and chill s - Hematological: Reports mild anemia - Family History: Denies any family hist ory of cardiac issues - Social: Denies smoking history Plan Laboratory tests will be repeated to further investigate anemia and joint issues. Rheumatology referral is advised to explore potential autoimmune causes indicated by a positive NEIDA. A chest X-ray is ordered to evaluate shortness of breath. For constipation, MiraLax is suggested, and dietary consultation is recommended. Discussion Notes During the visit, we discussed the known exposure to fifth disease and possible implications on joint health, the significance of a positive NEIDA result, and the potential linkage to joint symptoms, requiring further rheumatological evaluation. We covered management approaches to the persistent constipation, recommending MiraLax and consultations with a rig builder if needed due to dietary habits. Repeating lab work for anemia and getting a chest X-ray for shortness of breath were discussed as follow-up measures. Counseling was provided on each of these aspects and their intended benefits. Patient Instructions - Follow up with metal model builder as sched uled - Take MiraLax as advised for constipati on - Reach out to your GI provider for diet cate guidance if necessary - Await further testing outcomes - Look out for any new symptoms such as increased shortness of breath or severe joint pain and report if necessary [facility] Medical History Acute respiratory disease Surgical History History of ear, nose, and throat (ENT) surgery Social History Housing: House Patient Tobacco Use Status: Never used Tobacco e-Cigarette/Vaping Use: Never Used service: No Current occupational status: employed Current occupation: [employer] Cognitive needs: No Hearing needs: No Vision needs: No Questionnaire Thrive Questionnaire Date Thrive assessed: 11/02/23 SALVADOR-7 AMB Questionnaire SALVADOR-7 Date SALVADOR - 7 assessed: 11/02/23 Source: Developed by Drs. Ángel Denise, Tammi Ayala, Santos Mcpherson and colleagues, with an educational tiffany from [employer]. Physical exam (Primary Care) Tobacco/Smoking Status: Tobacco use Status Tobacco use date assessed 11/02/23 11/02/23 16:08 Patient Tobacco Use Status Never used Tobacco 10/20/24 12:12 e-Cigarette/Vaping Use Never Used 11/02/23 16:08 Thrive Assessment: Date of Thrive Assessment Date Thrive assessed 11/02/23 11/02/23 16:51 Telehealth Telehealth Telehealth Platform: [facility] Location of provider rendering services: practice address Location of patient: address on file Patient Identification confirmed using: Name, : Yes Telehealth method: video Patient verbally consented to treatment: Yes Patient verbally consented to billing insurance company: Yes Patient informed of any privacy concerns related to visit: Yes Minutes spent on Phone/Video with Pt.: 23 Coding Level of Care Code Tele Est Pt Level 4 (75509) Diagnoses Joint pain M25.50 NEIDA positive R76.8 SOB (shortness of breath) R06.02 Anemia D64.9 Assessment & Plan Assessment & Plan (1) Joint pain: Code(s): M25.50 - Pain in unspecified joint Category: Medical (2) NEIDA positive: Code(s): R76.8 - Other specified abnormal immunological findings in serum Category: Medical (3) SOB (shortness of breath): Code(s): R06.02 - Shortness of breath Category: Medical (4) Anemia: Code(s): D64.9 - Anemia, unspecified Category: Medical Plan . Orders: Orders XR chest 2V Today R06.02 - Shortness of breath Anti DNA DS Antibody Today D64.9 - Anemia, unspecified, R06.02 - Shortness of breath, R76.8 - Other specified abnormal immunological findings in serum DNA Double Stranded-Crithidia Today D64.9 - Anemia, unspecified, R06.02 - Shortness of breath, R76.8 - Other specified abnormal immunological findings in serum Cyclic Citrullinated Peptide Today D64.9 - Anemia, unspecified, R06.02 - Shortness of breath, R76.8 - Other specified abnormal immunological findings in serum Zinc Today D64.9 - Anemia, unspecified, R06.02 - Shortness of breath, R76.8 - Other specified abnormal immunological findings in serum Comprehensive Met. Panel Today D64.9 - Anemia, unspecified, M25.50 - Pain in unspecified joint, R06.02 - Shortness of breath, R76.8 - Other specified abnormal immunological findings in serum Lyme IgG/IgM w/reflex to WB Today R76.8 - Other specified abnormal immunological findings in serum Tick-borne Disease Molecular Today R76.8 - Other specified abnormal immunological findings in serum Rheumatoid Factor Today D64.9 - Anemia, unspecified, R06.02 - Shortness of breath, R76.8 - Other specified abnormal immunological findings in serum Methylmalonic Acid Today D64.9 - Anemia, unspecified, R06.02 - Shortness of breath, R76.8 - Other specified abnormal immunological findings in serum Homocysteine Today D64.9 - Anemia, unspecified, R06.02 - Shortness of breath, R76.8 - Other specified abnormal immunological findings in serum Magnesium Today D64.9 - Anemia, unspecified, R06.02 - Shortness of breath, R76.8 - Other specified abnormal immunological findings in serum Ceruloplasmin Today D64.9 - Anemia, unspecified, R06.02 - Shortness of breath, R76.8 - Other specified abnormal immunological findings in serum Erythrocyte Sedimentation Rate Today M25.50 - Pain in unspecified joint, R76.8 - Other specified abnormal immunological findings in serum CRP High Sensitivity Today M25.50 - Pain in unspecified joint, R76.8 - Other specified abnormal immunological findings in serum
== END 2024-10-26 07:47 | disposition home or self-care (01) ==
LOC: HO.HMCC 06:56
PROVIDERS: PCP Nurse Practitioner Family; Visit Provider Nurse Practitioner Family
DX: M25.50 Pain in unspecified joint (principal); R76.8 Other specified abnormal immunological findings in serum; R06.02 Shortness of breath; D64.9 Anemia, unspecified

== ENCOUNTER 2024-10-26 06:55 | Outpatient (REF) | payer OTHER, SELFPAY ==
--- NOTE | ~2024-10-26 | XR_ITS ---
EXAMINATION: XR CHEST 2 VIEWS HISTORY: R06.02 - Shortness of breath COMPARISON: There are no prior studies available for comparison. FINDINGS: PA and lateral views of the chest are submitted. The lungs are expanded and clear. There is no pleural effusion, pneumothorax, or pulmonary vascular congestion. The heart is normal in size. The bones are intact. XR/XR chest 2V IMPRESSION: Clear lungs. Electronically signed by: Ángel Wallace MD 10/26/2024 03:40 PM EDT
[2024-10-26 14:33] LABS: MANUAL DIFF FLAG NO
[2024-10-26 15:18] LABS: Basophils Absolute Auto 0.1 X10*3/uL (0.0-0.2); Basophils Percent Auto 2.4 % (0-2); Eosinophils Absolute Auto 0.2 X10*3/uL (0.0-0.4); Eosinophils Percent Auto 4.7 % (0-4); Hematocrit 39.8 % (42.0-52.0); Hemoglobin 12.9 g/dl (14.0-18.0); Imm Gran Abs Auto 0.01 X10*3/uL (0.00-0.03); Imm Gran Pct Auto 0.2 % (0.0-0.4); Immature Retic Fraction 9.4 % (2.3-13.4); Lymphocytes Absolute Auto 1.3 X10*3/uL (1.2-4.9); Mean Corpuscular HGB Conc 32.4 g/dl (31.0-36.0); Mean Corpuscular Hemoglobin 29.5 pg (27.0-33.0); Mean Corpuscular Volume 90.9 fL (80.0-98.0); Mean Platelet Volume 11.3 fL (9.4-12.4); Monocytes Absolute Auto 0.7 X10*3/uL (0.1-1.2); Monocytes Percent Auto 14.4 % (2-11); Neutrophils Absolute Auto 2.5 x10*3/uL (2.0-8.3); Neutrophils Percent Auto 51.3 % (45-73); Platelet Count 267 X10*3/uL (160-400); Red Blood Count 4.38 X10*6/uL (4.60-5.80); Red Cell Distribution Width 14.6 % (11.0-16.0); Retic HGB Equivalent 33.5 pg (30.0-35.0); Reticulocyte Percent 1.4 % (0.5-1.8); Reticulocytes Absolute 0.059 X10*6/uL (0.026-0.095); White Blood Count 4.9 X10*3/uL (4.8-10.8)
[2024-10-26 15:30] LABS: Alanine Aminotransferase 33 U/L (0-40); Albumin Level 4.8 g/dL (3.5-5.0); Alkaline Phosphatase 83 U/L (39-117); Anion Gap 11 (12-20); Aspartate Amino Transferase 28 U/L (5-37); Bilirubin Total 0.3 mg/dL (0.0-1.0); Blood Urea Nitrogen 17 mg/dL (9-16); Calcium 9.3 mg/dL (8.4-10.2); Carbon Dioxide 28 mmol/L (22-29); Chloride 105 mmol/L (96-108); Estimated Glomerular Filt Rate > 60; Glucose Random 91 mg/dL (60-115); Iron 77 mcg/dL (45-160); Magnesium 2.2 mg/dL (1.6-2.6); Percent Iron Saturation 29 % (15-50); Potassium 3.9 mmol/L (3.3-5.1); Sodium 140 mmol/L (135-145); Total Iron Binding Capacity 262 mcg/dL (228-428); Total Protein 7.6 g/dL (6.5-8.0); Unsaturated Iron Binding 185 ug/dL
[2024-10-26 15:31] LABS: Rheumatoid Factor 15.2 IU/mL (<15.0)
[2024-10-26 15:51] LABS: Ferritin 328 ng/mL (20-250)
[2024-10-26 16:03] LABS: Vitamin B12 747 pg/mL (200-900)
--- OUTSIDE RECORDS SUMMARY | 2024-10-26 16:16 | XMS_ITS | Clinical Summary ---
Author Organization [employer] [facility] Address [address] [place] [address] Care Team Providers Care Visual Aid Expert Name Role Phone Jw Momin MD Primary Care Provider [phone] Allergies No known active allergies Medications No [...] LABORATORY SERVICES Comment: Performed on Siemens Advia Ignite100aur Not infected with HCV, unless recent infection [...] BLOOD ORDERABLES Final Result Performing Organization Address City/[facility]/ZIP Co de Phone Number LABORATORY SERVICES [id number] [place] [phone], * (ABNORMAL) Lipid panel (02/04/2022 4:13 PM [...] BLOOD ORDERABLES Final Result Performing Organization Address City/[facility]/ZIP Co de Phone Number LABORATORY SERVICES [id number] [place] [phone], * Colonoscopy (12/06/2013) Anatomical Region Laterality Modality Endoscopy External Ordering Provider Transcribe GI PROCEDU RE ORDERABLES Final Result from Last 3 Months or Most Recently Relevant to Health Maintenance Insurance [employer] Care Teams Visual Aid Expert Relationship Specialty Start Date End Date Jw Momin MD [address] [place] [phone] PCP - General Family Medicine 02/04/22
[2024-10-26 16:22] LABS: Erythrocyte Sedimentation Rate 14 MM/HR (0-15)
[2024-10-26 16:28] LABS: Lactate Dehydrogenase 249 U/L (118-273)
[2024-10-27 04:04] LABS: CRP High Sensitivity 0.6 mg/L
[2024-10-27 05:13] LABS: Lyme Abs Screen <0.90 index
[2024-10-27 09:44] LABS: Ceruloplasmin 22 mg/dL (14-30)
[2024-10-27 18:18] LABS: Homocysteine 8.8 umol/L (< or = 13.5)
[2024-10-27 21:19] LABS: A. Phagocytphilium DNA,RT-PCR NOT DETECTED (NOT DETECTED); Babesia Microti DNA, RT-PCR NOT DETECTED (NOT DETECTED); Borrelia Miyamotoi,DNA RT-PCR NOT DETECTED (NOT DETECTED); E.Chaffeensis DNA RT-PCR NOT DETECTED (NOT DETECTED); Lyme(Borrelia ssp)DNA RT-PCR NOT DETECTED (NOT DETECTED)
[2024-10-28 13:54] LABS: Cyclic Citrullinated Peptide <16 UNITS
[2024-10-29 06:33] LABS: Anti DNA DS Antibody 4 IU/mL
[2024-10-29 08:39] LABS: DNAds, Crithidia Antibody Negative (Negative)
[2024-10-29 09:48] LABS: Methylmalonic Acid 149 nmol/L (55-335)
[2024-10-29 18:49] LABS: Zinc 67 mcg/dL (60-130)
== END 2024-10-26 06:56 | disposition home or self-care (01) ==
LOC: HO.XRAY 06:55
PROVIDERS: Absent Provider Physician Assistant Medical; PCP Nurse Practitioner Family; Visit Provider Nurse Practitioner Family
DX: M25.50 Pain in unspecified joint (principal); R06.02 Shortness of breath; R76.8 Other specified abnormal immunological findings in serum; D64.9 Anemia, unspecified; D72.829 Elevated white blood cell count, unspecified; Z13.6 Encounter for screening for cardiovascular disorders
CPT/HCPCS: 36415; 71046; 80053; 82390; 82607; 82728; 82746; 83090; 83540; 83615; 83735; 83921; 84630; 85025; 85045; 85652; 86141; 86200; 86225; 86255; 86431; 86617; 86618; 87468; 87469; 87478; 87484; 87798

== ENCOUNTER → 2024-10-26 14:28 | Outpatient (BNV) | payer OTHER, SELFPAY | PROVIDERS: Absent Provider Physician Assistant Medical; PCP Nurse Practitioner Family; Visit Provider Radiology Diagnostic Radiology | DX: R06.02 Shortness of breath (principal) | CPT/HCPCS: 71046 ==

== ENCOUNTER 2024-10-27 11:40 | Outpatient (REF) | payer OTHER, SELFPAY ==
--- OUTSIDE RECORDS SUMMARY | 2024-10-27 13:47 | XMS_ITS | Clinical Summary ---
Author Organization [employer] [facility] Address [address] [place] [address] Care Team Providers Care Litigation Claim Representative Name Role Phone Jw Momin MD Primary Care Provider [phone] Allergies No known active allergies Medications No [...] LABORATORY SERVICES Comment: Performed on Siemens Advia BetterDoctoraur Not infected with HCV, unless recent infection [...] ORDERABLES Final Result Performing Organization Address City/[facility]/ZIP Co de Phone Number LABORATORY SERVICES [id number] [place] [phone], * (ABNORMAL) Lipid panel (02/04/2022 4:13 PM [...] ORDERABLES Final Result Performing Organization Address City/[facility]/ZIP Co de Phone Number LABORATORY SERVICES [id number] [place] [phone], * Colonoscopy (12/06/2013) Anatomical Region Laterality Modality Endoscopy External Ordering Provider Transcribe GI PROCEDU RE ORDERABLES Final Result from Last 3 Months or Most Recently Relevant to Health Maintenance Insurance [employer] Care Teams Litigation Claim Representative Relationship Specialty Start Date End Date Jw Momin MD [address] [place] [phone] PCP - General Family Medicine 02/04/22
[2024-10-27 14:18] LABS: Adenovirus F 40/41 Not Detected (Not Detect.); Astrovirus Not Detected (Not Detect.); Campylobacter Not Detected (Not Detect.); Cryptosporidium Not Detected (Not Detect.); Cyclospora cayetanensis Not Detected (Not Detect.); E. coli EAEC Not Detected (Not Detect.); E. coli EPEC Not Detected (Not Detect.); E. coli ETEC Not Detected (Not Detect.); E. coli STEC Not Detected (Not Detect.); Entamoeba histolytica Not Detected (Not Detect.); Giardia lamblia Not Detected (Not Detect.); Norovirus GI/GII Not Detected (Not Detect.); Plesiomonas shigelloides Not Detected (Not Detect.); Rotavirus A Not Detected (Not Detect.); Salmonella Not Detected (Not Detect.); Sapovirus Not Detected (Not Detect.); Shigella sp./EIEC Not Detected (Not Detect.); Vibrio Not Detected (Not Detect.); Vibrio Cholerae Not Detected (Not Detect.); Yersinia enterocolitica Not Detected (Not Detect.)
== END 2024-10-27 11:41 | disposition home or self-care (01) ==
LOC: HO.LNP 11:40
PROVIDERS: Visit Provider Physician Assistant Medical
DX: M25.50 Pain in unspecified joint (principal)
CPT/HCPCS: 87507

== ENCOUNTER 2024-11-29 15:00 | Outpatient (AMB) | payer OTHER, SELFPAY ==
--- NOTE | 2024-11-29 15:06 | MHC.PC.OV ---
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 Required: No Accompanied by: Self / Same As Patient Allergies No Known Allergies Allergy (Verified 11/29/24 15:10) Medication List - Last Reconciled 11/29/24 by ALLISON Curry No Known Home Meds Tobacco use date assessed: 11/29/24 Dental Screening Dental Screen Date: 11/29/24 Did you have a dental visit in the last 12 months?: Yes Did you have a dental problem in the last 6 months where you did not have access to dental care?: No Was dental information given to patient?: Patient has dentist HPI PE HPI Details History of Present Illness The patient is a 44-year-old male presenting for a physical examination. Previously, the patient experienced hand, foot, and mouth disease, which resulted in significant fatigue and soreness. Laboratory tests revealed a positive rheumatoid factor, prompting a referral to rheumatology, with an appointment scheduled in about a month and a half. The patient reports intermittent constipation, which he attributes to dietary factors. He denies experiencing chest pain, dyspnea, abdominal pain, blood in stool, diarrhea, suicidal ideation, or homicidal ideation. Health Maintenance - Scheduled colonoscopy for preventative care Social History Review of Systems - Cardiovascular: Denies chest pain - Respiratory: Denies dyspnea - Gastrointestinal: Reports intermittent constipation; denies abdominal pain, blood in stool, diarrhea - Psychiatric: Denies suicidal ideation, homicidal ideation Physical Exam General: Cooperative, healthy appearing, comfortable, no acute distress and well developed Orientation: Patient oriented x3 Limitations: No limitations Head: Normal to inspection Ears: Hearing grossly normal bilaterally Nose: Normal external nose present Face and sinus: Normal facial exam Eyes: Appearance normal, both eyes and all related structures Neck: Normal visual inspection and Yes full ROM Respiratory: Normal respiratory effort and able to speak in complete sentences. Clear to auscultation bilaterally Cardiovascular: Regular rate and rhythm. Normal S1 and S2 GI: Normal to inspection. Soft to palpation and nontender : Testicles without masses/lesions and no hernias appreciated Skin: No rashes or lesions noted Neuro: Patient oriented x3 Extremities: Normal to inspection Results - Labs: Positive rheumatoid factor Plan The patient will follow up with rheumatology in about a month and a half to further evaluate the positive rheumatoid factor and address any joint-related concerns. Preventative care measures include a scheduled colonoscopy to screen for colorectal issues. The patient is advised to monitor dietary habits to manage intermittent constipation and report any changes in symptoms. Discussion Notes I discussed with the patient the importance of following up with rheumatology to address the positive rheumatoid factor and any potential joint issues. We also reviewed the need for a colonoscopy as part of his preventative care regimen. The patient was advised to monitor his diet to manage constipation and to report any significant changes in his symptoms. Patient Instructions - Follow up with rheumatology as scheduled. - Attend the scheduled colonoscopy for screening. - Monitor your diet to help manage constipation. - Report any changes in symptoms to your healthcare provider. [facility] Medical History Acute respiratory disease Surgical History History of ear, nose, and throat (ENT) surgery Social History Housing: House Patient Tobacco Use Status: Never used Tobacco e-Cigarette/Vaping Use: Never Used service: No Current occupational status: employed Current occupation: [employer] Cognitive needs: No Hearing needs: No Vision needs: No Questionnaire PHQ-9 Over the last 2 weeks, how often have you been bothered by any of the following problems? 1. Little interest or pleasure in doing things: not at all 2. Feeling down, depressed, or hopeless: not at all 3. Trouble falling or staying asleep, or sleeping too much: not at all 4. Feeling tired or having little energy: not at all 5. Poor appetite or overeating: not at all 6. Feeling bad about yourself - or that you are a failure or have let yourself or your family down: not at all 7. Trouble concentrating on things, such as reading the newspaper or watching television: not at all 8. Moving or speaking so slowly that other people could have noticed. Or the opposite - being so fidgety or restless that you have been moving around a lot more than usual: not at all 9. Thoughts that you would be better off or of hurting yourself in some way: not at all Total score: 0 Depression Screening Interpretation: Negative Depression Screening Done: Yes 34827 - PHQ-9 Billing: Yes Source: Developed by Drs. Ángel Denise, Tammi Ayala, Santos Mcpherson and colleagues, with an educational tiffany from [employer]. Thrive Questionnaire Date Thrive assessed: 11/29/24 I am a: Patient What is your living situation today?: I have a steady place to live Within the past 12 months, did the food you bought not last and you didn't have the money to get more?: Never true Within the past 12 months, did you worry whether your food would run out before you got money to buy more?: Never true Do you have trouble paying for medicines?: No Do you have trouble getting transportation to medical appointments?: No Do you have trouble paying your heating and electricity bill?: No Do you have trouble taking care of your child, family member or friend?: No Do you have trouble with day-to-day activities such as bathing, preparing meals, shopping, managing finances, etc.?: No Are you currently unemployed and looking for a job?: No Are you interested in more education?: No Please select the resources that you would like help with: None Currently or been in a relationship where the following occur: No concerns reported THRIVE Score: 0 AUDIT C Alcohol Use Questionnaire (AUDIT-C) 1. How often do you have a drink containing alcohol?: Never 3. How often do you have six or more drinks on one occasion?: Never Total Score: 0 Score Reviewed/Action Taken: Yes SALVADOR-7 AMB Questionnaire SALVADOR-7 Date SALVADOR - 7 assessed: 11/02/23 Feeling nervous, anxious, or on edge: 0 = Not at all Not being able to stop or control worryin = Not at all Worrying too much about different things: 0 = Not at all Trouble relaxin = Not at all Being so restless that it is hard to sit still: 0 = Not at all Becoming easily annoyed or irritable: 0 = Not at all Feeling afraid as if something awful might happen: 0 = Not at all Total SALVADOR-7 score (0-4 normal; 5-9 mild; 10-14 moderate; 15-21 severe): 0 Source: Developed by Drs. Ángel Denise, Tammi Ayala, Santos Mcpherson and colleagues, with an educational tiffany from [employer]. SALVADOR-7 Assessment Billing SALVADOR-7 Assessment Tool: SALVADOR-7 Assessment 62397 Physical exam (Primary Care) Vital Signs: Last Vital Signs Temp 98.5 F 11/29/24 15:07 Pulse 72 11/29/24 15:07 Resp 16 11/29/24 15:07 BP 118/70 11/29/24 15:07 Pulse Ox 98 11/29/24 15:07 Oxygen Delivery Method Room Air 11/29/24 15:07 BMI result Body Mass Index 22.9 Tobacco/Smoking Status: Tobacco use Status Tobacco use date assessed 11/29/24 11/29/24 15:11 Patient Tobacco Use Status Never used Tobacco 11/29/24 15:11 e-Cigarette/Vaping Use Never Used 11/29/24 15:11 PHQ-9: PHQ-9 Score PHQ-9: Total score 0 11/29/24 15:11 Depression Screening Interpretation: Negative Thrive Assessment: Date of Thrive Assessment Date Thrive assessed 11/29/24 11/29/24 15:11 Currently or been in a relationship where the following occur: No concerns reported Coding Level of Care Code Est Pt Prev Care 40-64y(96574) Diagnoses Physical exam Z00. Additional Codes SALVADOR-7 Assessment Billing - SALVADOR-7 Assessment Tool: SALVADOR-7 Assessment 46627 ([id number]) PHQ-9 - 70946 - PHQ-9 Billing: Yes ([id number]) Assessment & Plan Assessment & Plan (1) Physical exam: Code(s): Z00.00 - Encounter for general adult medical examination without abnormal findings Category: Medical Plan . Orders: Orders Complete Blood Count Auto Diff Today Z00.00 - Encounter for general adult medical examination without abnormal findings Comprehensive Miller. Panel Fast Today Z00.00 - Encounter for general adult medical examination without abnormal findings Lipid Panel Today Z00.00 - Encounter for general adult medical examination without abnormal findings TSH reflex Free T4 Today Z00.00 - Encounter for general adult medical examination without abnormal findings UA CC w/rflx Micro + Cult Today Z00.00 - Encounter for general adult medical examination without abnormal findings
[2024-11-29 15:07] VITALS: BP 118/70; PULSE 72; RESP 16; TEMP 36.9; O2SAT 98; BMI 22.9
--- OUTSIDE RECORDS SUMMARY | 2024-11-29 16:19 | XMS_ITS | Clinical Summary ---
Author Organization [employer] [facility] Address [address] [place] [address] Care Team Providers Care Log Hooker Name Role Phone Jw Momin MD Primary Care Provider [phone] Allergies No known active allergies Medications No [...] 70 03/04/2022 10:01 AM EDT Temperature 35.9 C (96.7 F) 03/04/2022 10:01 AM EDT Respiratory Rate 16 03/04/2022 10:01 AM EDT Oxygen Saturation 98% 03/04/2022 10:01 AM EDT Inhaled Oxygen Concentration - - Weight 92.5 kg (204 lb) 03/04/2022 10:01 AM EDT Height 195.6 cm (6' 5 ) 03/04/2022 10:01 AM EDT Body Mass Index 24.19 03/04/2022 10:01 AM EDT Plan of Treatment Scheduled Orders Name Type Priority Associated Diagnoses Orde r Schedule Cologuard colon cancer screening Lab Routine Screen for [...] age to complete this topic HPV Vaccines (No Doses Required) Completed Hepatitis A Vaccines Aged Out No long [...] LABORATORY SERVICES Comment: Performed on Siemens Advia Centaur Not infected with HCV, unless recent infection [...] BLOOD ORDERABLES Final Result Performing Organization Address City/[facility]/ZIP Co de Phone Number LABORATORY SERVICES [id number] [place] [address], * (ABNORMAL) Lipid panel (02/04/2022 4:13 PM [...] BLOOD ORDERABLES Final Result Performing Organization Address City/[facility]/ZIP Co de Phone Number LABORATORY SERVICES [id number] [place] [address], * Colonoscopy (12/06/2013) Anatomical Region Laterality Modality Endoscopy External Ordering Provider Transcribe GI PROCEDU RE ORDERABLES Final Result from Last 3 Months or Most Recently Relevant to Health Maintenance Insurance [employer] Care Teams Log Hooker Relationship Specialty Start Date End Date Jw Momin MD [address] [place] [phone] PCP - General Family Medicine 02/04/22
--- OUTSIDE RECORDS SUMMARY | 2024-11-29 16:19 | XMS_ITS | Clinical Summary ---
Author Organization [facility] Address [address] [place] [id number] Care Team Providers Care Dean Of Instruction Name Role Phone Jw Momin MD Primary Care Provider [phone] Allergies No known active allergies Medications No [...] this topic Insurance [employer] HMO/POS Care Teams Dean Of Instruction Relationship Specialty Start Date End Date Jw Momin MD [address] [place] [phone] PCP - General Family Medicine 02/05/22
--- OUTSIDE RECORDS SUMMARY | 2024-11-29 16:19 | XMS_ITS ---
Author Name [facility] Organization Unknown Problems Problem Status Onset Date Problem Type Date of Resoluti on Source Shortness of breath active [facility] Family history of thoracic aortic aneurysm active 2022-04-30 ProblemAct [facility] Encounters Encounter Type Encounter Reason Primary Diagnosis Location Date Ambulatory Shortness of breath [facility] 05/29/2022 Ambulatory Shortness of breath [facility] 04/30/2022 Ambulatory Sacrococcygeal disorders, not elsewhere classified [facility] 03/04/2022 Ambulatory Sacrococcygeal disorders, not elsewhere classified [facility] 03/04/2022 Ambulatory Other specified abnormal findings of blood chemistry [facility] 03/04/2022 Ambulatory Unspecified jaundice [facility] 03/04/2022 Ambulatory Encounter for ge neral adult medical examination without abnormal findings [facility] 02/04/2022 Ambulatory Disorder of the skin and subcutaneous tissue, unspecified [facility] 02/04/2022 Care Team Organization Name Specialty Phone Email Start Date End Da te [facility] 04/30/20222022 [facility] 04/30/2022 [facility] 03/08/2022 [facility] 02/04/202202/15
== END 2024-11-29 16:35 | disposition home or self-care (01) ==
LOC: HO.HMCC 15:01
PROVIDERS: PCP Nurse Practitioner Family; Visit Provider Nurse Practitioner Family
DX: Z00.00 Encounter for general adult medical examination without abnormal findings (principal)

== ENCOUNTER → 2024-11-29 15:00 | Outpatient (BNVA) | payer OTHER, SELFPAY | PROVIDERS: PCP Nurse Practitioner Family; Visit Provider Nurse Practitioner Family | DX: Z00.00 Encounter for general adult medical examination without abnormal findings (principal); K59.00 Constipation, unspecified | CPT/HCPCS: 96127 ==